=== PATIENT | male | born 1995 | race Caucasian/White ===

== ENCOUNTER 2017-04-16 01:13 | Emergency (ER) | payer OTHER ==
[~2017-04-16] VITALS: Ht 180.3 cm; Wt 88.5 kg
[2017-04-16 01:17] VITALS: BP 141/71
--- NOTE | 2017-04-16 01:22 | NUR ---
PT TAKEN TO BED 12
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
[2017-04-16 01:46] VITALS: BP 141/71
[2017-04-17 12:42] LABS: HEPATITIS B SURFACE ANTIGEN Negative (Negative)
== END 2017-04-16 01:46 | disposition home or self-care (01) ==
LOC: MED 01:13
DX: Z77.21 Contact with and (suspected) exposure to potentially hazardous body fluids (principal); R03.0 Elevated blood-pressure reading, without diagnosis of hypertension
CPT/HCPCS: 36415; 86702; 86803; 87340; 99284

== ENCOUNTER 2019-10-31 18:40 | Emergency (ER) | payer OTHER ==
[~2019-10-31] VITALS: Ht 180.3 cm; Wt 108.9 kg
[2019-10-31 18:40] VITALS: BP 145/91
--- NOTE | 2019-10-31 18:48 | NUR ---
Patient ambulated to bed 5. RN evaluating patient at bedside.
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
--- NOTE | 2019-10-31 19:13 | NUR ---
RECEIVED REPORT FROM SAMINA QUINTANA. CONTINUATION OF CARE.
--- NOTE | 2019-10-31 19:16 | NUR ---
report given to linus mohr for continuity of care
--- NOTE | 2019-10-31 19:27 | NUR ---
PT WOUND BEING CLEANED BY SINDY DIETRICH AT BEDSIDE.
[2019-10-31] MEDS ORDERED: NEOMYCIN/POLYMYXIN/BACITRACIN 0.9 GM/1 PKT TP ONE (19:40)
[2019-10-31 20:04] VITALS: BP 145/91
--- NOTE | 2019-10-31 20:04 | NUR ---
Patient discharged with v/s stable. Written and verbal after care instructions given and explained. Patient verbalized understanding. Ambulatory with steady gait. All questions addressed prior to discharge. Advised to follow up with PMD. PT WAS BANDAGED AND ANTIBIOTIC OINTMENT WAS APPLIED. PT TOLERATED WELL
== END 2019-10-31 20:04 | disposition home or self-care (01) ==
LOC: MED 18:40
DX: S50.812A Abrasion of left forearm, initial encounter (principal); S90.415A Abrasion, left lesser toe(s), initial encounter; R03.0 Elevated blood-pressure reading, without diagnosis of hypertension; J45.909 Unspecified asthma, uncomplicated; V49.09XA Driver injured in collision with other motor vehicles in nontraffic accident, initial encounter; Y93.89 Activity, other specified; Y92.89 Other specified places as the place of occurrence of the external cause; Y99.8 Other external cause status
CPT/HCPCS: 99282

== ENCOUNTER 2020-03-23 19:17 | Emergency (ER) | payer OTHER ==
[~2020-03-23] VITALS: Ht 177.8 cm; Wt 108.0 kg
[2020-03-23 19:37] VITALS: BP 148/105
--- NOTE | 2020-03-23 19:39 | NUR ---
triaged and awaiting MSE in tent.
--- NOTE | 2020-03-23 20:40 | NUR ---
PT CHECKED IN TO ER WITH C/O SORE THROAT. PT IS A/OX4. NO SIGN OF DISTRESS NOTED. PAIN LEVEL IS 6/10. ERMD AWARE. PT OUT IN COVID TENT. WILL CONTINUE TO MONITOR
--- NOTE | 2020-03-23 20:59 | NUR ---
PT D/C WITH VSS. PT WAS INSTRUCTED TO FOLLOW UP WITH PCP AND EDUCATED ON IN HOME CARE. PT UNDERSTOOD. PT AMBULATED OUT OF ER. NO SIGN OF DISTRESS NOTED.
[2020-03-23 21:00] VITALS: BP 148/105
--- NOTE | 2020-03-23 21:00 | NUR ---
PT WAS GIVEN MEDICATION PRESCRIPTIONS BY ANGI
== END 2020-03-23 21:00 | disposition home or self-care (01) ==
LOC: MED 19:17
DX: J02.9 Acute pharyngitis, unspecified (principal); R07.9 Chest pain, unspecified; J45.909 Unspecified asthma, uncomplicated; Z20.828 Contact with and (suspected) exposure to other viral communicable diseases
CPT/HCPCS: 71045; 99284; U0003

== ENCOUNTER 2020-03-31 13:32 | Emergency (ER) | payer OTHER ==
[~2020-03-31] VITALS: Ht 182.9 cm; Wt 104.3 kg
[2020-03-31 13:38] VITALS: BP 131/75
--- NOTE | 2020-03-31 13:40 | NUR ---
25 y/o male from home c/o sore throat x 1 wk. Pt tested for covid on 03/23 with a negative result. Denies cough/SOB. Pt states he needs to be re-tested to return to work. / sharp pain to throat. VSS medhx: asthma
--- NOTE | 2020-03-31 13:57 | NUR ---
Covid swab collected and sent to lab.
[2020-03-31 14:01] VITALS: BP 131/75
--- NOTE | 2020-03-31 14:01 | NUR ---
Patient discharged with v/s stable. Written and verbal after care instructions given and explained. Patient verbalized understanding. Ambulatory with steady gait. All questions addressed prior to discharge. Advised to follow up with PMD.
== END 2020-03-31 14:01 | disposition home or self-care (01) ==
LOC: MED 13:32
DX: J02.9 Acute pharyngitis, unspecified (principal); J45.909 Unspecified asthma, uncomplicated; Z20.828 Contact with and (suspected) exposure to other viral communicable diseases
CPT/HCPCS: 99283; U0003